=== PATIENT | female | born 1965 | race Two or more races ===

== ENCOUNTER → 2019-03-13 | Day surgery (SDC) | payer BC ==
--- NOTE | 2019-03-16 16:31 | PATH ---
Cytology Non-Gynecological Report Patient Name: DIANE MURGUIA [facility]. Rec. #: [id number] /Age/Gender: 1965 (Age: 53) / F Account: [id number] [facility]: 03/13/2019 Received: 03/13/2019 Reported: 03/16/2019 Physicians: Vinny Pagan M.D. Specimen(s) Received THYROID FNA Clinical History Left lobe nodule Final Diagnosis THYROID, LEFT, FINE NEEDLE ASPIRATION: SATISFACTORY FOR EVALUATION [place] CLASS II: BENIGN SMALL FOLLICULAR CELLS AND COLLOID PRESENT, CONSISTENT WITH A BENIGN FOLLICULAR NODULE. Electronically Signed Jordan Suh M.D. Gross Description Received are eight direct smears, four of which are air-dried and Diff-Quik stained, and four of which are alcohol fixed and Pap stained. Also received is 20 ml of bloody formalin from which one cellblock is prepared.
== END | disposition home or self-care (01) ==
LOC: JRADUS 09:51 → JRADUS-SUR 09:51
PROVIDERS: ATTEND Internal Medicine Endocrinology, Diabetes & Metabolism
PROC: 0G9G3ZX Drainage of Left Thyroid Gland Lobe, Percutaneous Approach, Diagnostic (ICD-10-PCS; principal; 2019-03-13)
DX: E04.1 Nontoxic single thyroid nodule (principal)
CPT/HCPCS: 10005; 76942; 88173; 88305-TC

== ENCOUNTER 2019-04-19 22:10 | Emergency (ER) | payer BC | END 2019-04-20 00:51 | disposition home or self-care (01) | LOC: JER 04-20 00:51 | DX: J06.9 Acute upper respiratory infection, unspecified (principal) ==

== ENCOUNTER 2021-03-01 21:23 | Emergency (ER) | payer BC ==
[2021-03-01 21:33] VITALS: BP 99/61; PULSE 79; TEMP 97.7; BMI 27.4
[2021-03-01 22:11] LABS: HEMOGLOBIN 13.5 GM/dl (10.7-15.3); MONO % 7.7 % (3.8-10.2); WHITE BLOOD COUNT 6.1 K/mm3 (4.0-10.8)
[2021-03-01 22:14] LABS: BASO % 1.1 % (0-2.0); EOS % 1.5 % (0-4.5); HEMATOCRIT 40.1 % (32.4-45.2); LYMPH % 42.8 % (8-40); MCH 29.6 pg (25.7-33.7); MCHC 33.6 g/dl (32.0-36.0); MEAN PLT VOLUME 9.7 fl (7.5-11.1); NEUT % 46.9 % (42.8-82.8); PLATELET COUNT 195 K/MM3 (134-434); RBC 4.55 M/mm3 (3.60-5.2); RDW 13.1 % (11.6-15.6)
[2021-03-01 22:21] LABS: CALCIUM 8.6 mg/dl (8.5-10); CREATININE 0.7 mg/dl (0.55-1.3)
[2021-03-01 23:03] LABS: ERYTHROCYTE SEDIMENTATION RATE 28 mm/hr (0-30)
== END 2021-03-01 22:51 | disposition home or self-care (01) ==
LOC: FER 21:23
DX: R05 Cough (principal); Z11.52 Encounter for screening for COVID-19
CPT/HCPCS: 36415; 71046-TC-FY; 80048; 85025; 85651; 86140; 99283-25; C9803; U0003; U0005

== ENCOUNTER 2022-08-19 16:25 | Emergency (ER) | payer BC ==
[2022-08-19] MEDS ORDERED: SODIUM CHLORIDE 0.9% 500 ML INFUS.BAG IV ONE (16:33)
[2022-08-19] MEDS ORDERED: ACETAMINOPHEN 1000 MG/100 ML BAG IVPB ONE (16:33)
[2022-08-19] MEDS ORDERED: CEFTRIAXONE 1,000 MG in DEXTROSE 5%-WATER - 50 ML IVPB ONE (16:34)
[2022-08-19] MEDS ORDERED: ONDANSETRON 4 MG/2 ML VIAL IVPUSH ONE (16:34)
[2022-08-19] MEDS ORDERED: ONDANSETRON 4 MG/2 ML VIAL ONE (16:50)
[2022-08-19] MEDS ORDERED: cefTRIAXone SODIUM 1 GM VIAL ONE (16:50)
[2022-08-19] MEDS ORDERED: ACETAMINOPHEN INJECTION 100 ML IVPB ONE (16:50)
[2022-08-19 16:51] VITALS: BP 103/72; PULSE 76; RESP 18; TEMP 97.9; BMI 29.0
[2022-08-19 17:22] LABS: HEMOGLOBIN 14.7 G/dL (10.7-15.3); MCH 31.3 pg (25.7-33.7); MEAN CELL VOLUME 89.5 fl (80-96); MEAN PLT VOLUME 8.8 fl (7.5-11.1); PLATELET COUNT 197.3 10^3/uL (134-434); RBC 4.69 10^6/uL (3.60-5.2); RDW 14.1 % (11.6-15.6); WHITE BLOOD COUNT 6.7 10^3/uL (4.0-10.8)
[2022-08-19 17:35] LABS: ALBUMIN 3.4 g/dl (3.4-5.0); BILIRUBIN,TOTAL 0.4 mg/dl (0.2-1); CALCIUM 9.2 mg/dl (8.5-10); CREATININE 0.7 mg/dl (0.55-1.3); TOT PROT 6.7 g/dl (6.4-8.2)
[2022-08-19 17:40] LABS: URINE APPEARANCE CLEAR; URINE COLOR YELLOW
[2022-08-19 17:41] LABS: URINE BILIRUBIN NEGATIVE (NEGATIVE); URINE GLUCOSE (UA) NEGATIVE (NEGATIVE); URINE KETONE TRACE (NEGATIVE); URINE LEUK ESTERASE NEGATIVE (NEGATIVE); URINE NITRITE NEGATIVE (NEGATIVE); URINE PROTEIN NEGATIVE (NEGATIVE); URINE UROBILINOGEN 0.2 (0.2-1.0); URINE WBC 0-2 (NEGATIVE)
[2022-08-19 17:42] LABS: URINE BACTERIA FEW /hpf (NEGATIVE)
[2022-08-19 17:55] LABS: PLATELET ESTIMATE ADEQUATE
[2022-08-19] MEDS ORDERED: KETOROLAC TROMETHAMINE 30 MG/1 ML VIAL IVPUSH ONE (17:55)
[2022-08-19] MEDS ORDERED: KETOROLAC TROMETHAMINE 30 MG/1 ML VIAL ONE (18:03)
== END 2022-08-19 20:33 | disposition home or self-care (01) ==
LOC: FER 16:25
PROC: 3E03329 Introduction of Other Anti-infective into Peripheral Vein, Percutaneous Approach (ICD-10-PCS; principal; 2022-08-19)
PROC: 3E033GC Introduction of Other Therapeutic Substance into Peripheral Vein, Percutaneous Approach (ICD-10-PCS; 2022-08-19)
PROC: 3E033GC Introduction of Other Therapeutic Substance into Peripheral Vein, Percutaneous Approach (ICD-10-PCS; 2022-08-19)
DX: R10.9 Unspecified abdominal pain (principal)
CPT/HCPCS: 36415; 74176-TC; 80053; 81003; 81015; 85025; 87086; 99285-25

== ENCOUNTER 2023-12-15 18:15 | Emergency (ER) | payer BC ==
[2023-12-15 18:49] VITALS: BP 99/65; PULSE 66; RESP 16; TEMP 98; BMI 24.2
[2023-12-15] MEDS ORDERED: KETOROLAC TROMETHAMINE 30 MG/1 ML VIAL IM ONE (19:27)
[2023-12-15] MEDS ORDERED: KETOROLAC TROMETHAMINE 30 MG/1 ML VIAL ONE (19:30)
== END 2023-12-15 20:29 | disposition home or self-care (01) ==
LOC: FER 18:15
PROC: 2W3DX1Z Immobilization of Left Lower Arm using Splint (ICD-10-PCS; principal; 2023-12-15)
PROC: 3E0233Z Introduction of Anti-inflammatory into Muscle, Percutaneous Approach (ICD-10-PCS; 2023-12-15)
DX: S52.512A Displaced fracture of left radial styloid process, initial encounter for closed fracture (principal); M25.532 Pain in left wrist; W01.0XXA Fall on same level from slipping, tripping and stumbling without subsequent striking against object, initial encounter; Y92.009 Unspecified place in unspecified non-institutional (private) residence as the place of occurrence of the external cause
CPT/HCPCS: 73110-TC-LT-FY; 73130-TC-LT-FY; 99284-25